=== PATIENT | female | born 1990 | race Caucasian/White ===

== ENCOUNTER 2020-09-22 23:34 | Outpatient (CLI) | payer OTHER ==
[~2020-09-22 23:34] MED LIST: DILANTIN100 MG PO; KEFLEX CAP 500500 MG PO; PHENERGAN 25 MG25 M1 PO
[2020-09-28] MEDS ORDERED: LORTAB 5-325 M1 EACH PO (12:31)
== END 2020-09-23 02:05 | disposition home or self-care (01) ==
LOC: GENOP 23:34
PROVIDERS: Obstetrics & Gynecology
DX: O42.90 Premature rupture of membranes, unspecified as to length of time between rupture and onset of labor, unspecified weeks of gestation (principal); O99.891 Other specified diseases and conditions complicating pregnancy; R10.9 Unspecified abdominal pain
CPT/HCPCS: 80307; 81001; 83518; G0463

== ENCOUNTER → 2020-09-27 | Outpatient (CLI) | payer OTHER ==
[~2020-09-27] MED LIST changes: +FOLIC ACID 1 MG1 MG PO; +KEPPRA1000 MG PO; +LORTAB 5-325 M1 EACH PO; +PRENATAL VITAM1 EAC3 PO
[2020-09-27 14:42] LABS: HEMOGLOBIN 12.7 gm/dl (12.3-15.3); RED BLOOD COUNT 4.28 M/UL (4.00-5.10); WHITE BLOOD COUNT 9.6 K/UL (4.5-11.0)
== END ==
LOC: GENOP 12:46
PROVIDERS: Obstetrics & Gynecology
DX: Z53.8 Procedure and treatment not carried out for other reasons (principal)
CPT/HCPCS: 36415; 80307; 81001; 85025; U0002

== ENCOUNTER 2020-09-28 05:11 | Inpatient (IN) | payer OTHER ==
[~2020-09-28] VITALS: Ht 160 cm; Wt 100.2 kg
[~2020-09-28 05:11] MED LIST changes: -FOLIC ACID 1 MG1 MG PO; -KEPPRA1000 MG PO; -LORTAB 5-325 M1 EACH PO; -PRENATAL VITAM1 EAC3 PO
[2020-09-28] MEDS ORDERED: KEPPRA1000 MG PO (06:10)
[2020-09-28] MEDS ORDERED: FOLIC ACID 1 MG1 MG PO (06:13)
[2020-09-28] MEDS ORDERED: PRENATAL VITAM1 EAC3 PO (06:14)
[2020-09-28] MEDS ORDERED: LORTAB 5-325 M1 EACH PO (12:31)
[2020-09-29 05:44] LABS: HEMOGLOBIN 11.7 gm/dl (12.3-15.3)
== END 2020-09-30 14:41 | disposition home or self-care (01) | DRG 787 ==
LOC: GENOP 05:11 → OB 05:17
PROVIDERS: ADMIT Obstetrics & Gynecology
PROC: 10D00Z1 Extraction of Products of Conception, Low, Open Approach (ICD-10-PCS; principal; 2020-09-28 11:30)
DX: O34.211 Maternal care for low transverse scar from previous cesarean delivery (principal); O99.324 Drug use complicating childbirth; Z3A.39 39 weeks gestation of pregnancy; Z37.0 Single live birth; Z20.828 Contact with and (suspected) exposure to other viral communicable diseases; O99.334 Smoking (tobacco) complicating childbirth; F17.210 Nicotine dependence, cigarettes, uncomplicated; Z88.8 Allergy status to other drugs, medicaments and biological substances; O99.352 Diseases of the nervous system complicating pregnancy, second trimester; G40.909 Epilepsy, unspecified, not intractable, without status epilepticus; F15.90 Other stimulant use, unspecified, uncomplicated; O99.344 Other mental disorders complicating childbirth; F99 Mental disorder, not otherwise specified; O99.214 Obesity complicating childbirth; Z28.21 Immunization not carried out because of patient refusal
CPT/HCPCS: 36415; 80307; 81001; 82800; 85014; 85018; 85025; C9113; J0690; J2250; J2270; J2274; J2405; J2590; J3010; J7120; U0002

== ENCOUNTER 2020-10-29 19:52 | Emergency (ER) | payer OTHER ==
[~2020-10-29 19:52] MED LIST changes: +FOLIC ACID 1 MG1 MG PO; +KEPPRA1000 MG PO; +LORTAB 5-325 M1 EACH PO; +PRENATAL VITAM1 EAC3 PO
== END 2020-10-29 21:00 | disposition left against medical advice (07) ==
LOC: ER1 19:52
DX: R56.9 Unspecified convulsions (principal); Z53.21 Procedure and treatment not carried out due to patient leaving prior to being seen by health care provider

== ENCOUNTER 2020-11-28 11:07 | Emergency (ER) | payer OTHER | END 2020-11-28 14:01 | disposition left against medical advice (07) | LOC: ER1 11:07 | DX: Z53.21 Procedure and treatment not carried out due to patient leaving prior to being seen by health care provider (principal) ==

== ENCOUNTER → 2020-12-10 | Outpatient (CLI) | payer OTHER | LOC: MRI 08:30 | DX: G40.109 Localization-related (focal) (partial) symptomatic epilepsy and epileptic syndromes with simple partial seizures, not intractable, without status epilepticus (principal) | CPT/HCPCS: 70553; A9577 ==

== ENCOUNTER 2021-03-25 13:16 | Emergency (ER) | payer OTHER | END 2021-03-25 15:40 | disposition left against medical advice (07) | LOC: ER1 13:16 | DX: Z53.21 Procedure and treatment not carried out due to patient leaving prior to being seen by health care provider (principal) | CPT/HCPCS: 81001; 84703 ==

== ENCOUNTER → 2022-01-01 | Outpatient (CLI) | payer OTHER | LOC: LAB 11:13 | DX: Z32.00 Encounter for pregnancy test, result unknown (principal) | CPT/HCPCS: 84702 ==

== ENCOUNTER 2022-03-23 21:19 | Emergency (ER) | payer OTHER ==
[2022-03-23 22:48] LABS: HEMOGLOBIN 13.1 gm/dl (12.3-15.3); RED BLOOD COUNT 4.66 M/UL (4.00-5.10); WHITE BLOOD COUNT 10.6 K/UL (4.5-11.0)
[2022-03-23 23:22] LABS: BUN/CREATININE RATIO 8 (0-10)
== END 2022-03-23 23:02 | disposition left against medical advice (07) ==
LOC: ER1 21:19
PROVIDERS: Physician Assistant
DX: R10.817 Generalized abdominal tenderness (principal); R11.0 Nausea; F17.210 Nicotine dependence, cigarettes, uncomplicated; Z88.8 Allergy status to other drugs, medicaments and biological substances
CPT/HCPCS: 80053; 82150; 83605; 83690; 84703; 85025; 87086; 93005; 99283; Q9967